=== PATIENT | female | born 1990 | race Caucasian/White ===

== ENCOUNTER 2019-02-12 10:57 | Inpatient (IN) | payer OTHER ==
[2019-02-12 12:13] VITALS: BMI 22.8
--- NOTE | 2019-02-12 12:45 | HP ---
COWS - Scale Resting Pulse: 0= [place] 80 or Below Sweatin= Chills/Flushing Restless Observation: 0= Sits Still Pupil Size: 0= Normal to Room Light Bone or Joint Aches: 1= Mild Discomfort Runny Nose/ Eye Tearin= None GI Upset > 30mins: 2= Nausea/Diarrhea Tremor Observation: 0= None Yawning Observation: 0= None Anxiety or Irritability: 1=Feels Anxious/Irritable Goose Flesh Skin: 0=Smooth Skin COWS Score: 5 CIWA Score - Admission Criteria OASAS Guidelines: Admission for Medically Managed Detox: Requires at least one of the followin. CIWA greater than 12 2. Seizures within the past 24 hours 3. Delirium tremens within the past 24 hours 4. Hallucinations within the past 24 hours 5. Acute intervention needed for co occurring medical disorder 6. Acute intervention needed for co occurring psychiatric disorder 7. Severe withdrawal that cannot be handled at a lower level of care (continued vomiting, continued diarrhea, abnormal vital signs) requiring intravenous medication and/or fluids 8. Admitting History and Physical - Primary Care Physician PCP: none - Admission Chief Complaint: heroin and benzo detox History of Present Illness: Pt states she was clean for 3yrs, then 3 mo ago her dad got sick and she relapsed. She states she is using heroin and benzos daily. She uses 25-30 bags of heroin/ day which she is snorting. In the past she has shot up the heroin but not in the last 3mo. She is also taking benzos every day "at least 5 pills/ day" but amounts vary depending on what she can get. 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 Her last use of heroin was 1 bag this morning. She was also recently hospitalized and discharged from [facility] last night. There she was given methadone 10mg, and ativan to prevent withdrawals. The patient has 1 child who is 8 years old but she does not have custody. The child lives with her mother, who has full custody, [place] in [place], [place]. Pt reports she does not have menstrual periods as she has an IUD - Past Medical History Pulmonary: Yes: Asthma ...LMP: 12/03/13 Psych: Yes: Anxiety, Depression Endocrine: Yes: Hypothyroidism - Smoking History Smoking history: Current every day smoker Aproximately how many cigarettes per day: 10 - Alcohol/Substance Use Hx Alcohol Use: No Admission ROS [facility] Allergies/Adverse Reactions: Allergies Allergy/AdvReac Type Severity Reaction Status Date / Time Penicillins Allergy Verified 02/12/19 12:02 - Ebola screening Have you traveled outside of the country in the last 21 days: No (N) Have you had contact with anyone from an Ebola affected area: No Do you have a fever: No - Review of Systems Constitutional: Chills, Diaphoresis, Changes in sleep EENT: reports: Nose Congestion, Sinus Pressure. denies: Eye Pain, Ear Pain Respiratory: reports: Cough, Shortness of Breath (recently diagnosed with asthma , takes albuterol) Cardiac: denies: Chest Pain, Lightheadedness, Palpitations, Syncope GI: reports: Constipated, Nausea. denies: Diarrhea, Vomiting Musculoskeletal: reports: Back Pain (low back pain), Joint Pain, Muscle Weakness , Joint Stiffness Integumentary: reports: No Symptoms Reported Neuro: reports: No Symptoms reported Endocrine: reports: Intolerance to Cold Hematology: reports: No Symptoms Reported Psychiatric: reports: Anxious, Depressed Other Systems: Reviewed and Negative Patient History - Patient Medical History Hx Anemia: No Hx Asthma: Yes (ALBUTEROL SINCE 03/2013) Hx Chronic Obstructive Pulmonary Disease (COPD): No Hx Cancer: No Hx Cardiac Disorders: No Hx Congestive Heart Failure: No Hx Hypertension: No Hx Hypercholesterolemia: No Hx Pacemaker: No HX Cerebrovascular Accident: No Hx Seizures: No Hx Dementia: No Hx Diabetes: No Hx Gastrointestinal Disorders: Yes (DYSPEPSIA) Hx Liver Disease: No Hx Genitourinary Disorders: No Hx Sexually Transmitted Disorders: No Hx Renal Disease (ESRD): No Hx Thyroid Disease: Yes (HYPOTHYROIDISM,NON-COMPLIANT WITH MEDS) Hx Human Immunodeficiency Virus (HIV): No (NEGATIVE ON 12/16/13) Hx Hepatitis C: No Hx Depression: Yes (WAS ON CYMBALTA AND OTHERS) Hx Suicide Attempt: No Hx Bipolar Disorder: No Hx Schizophrenia: No - Patient Surgical History Past Surgical History: No - PPD History Date: 12/19/13 - Reproductive History Last Menstrual Period: 12/03/13 - Smoking Cessation Smoking history: Current every day smoker Aproximately how many cigarettes per day: 10 Hx Chewing Tobacco Use: No - Substances abused Heroin Substance route: Inhalation Frequency: Daily Amount used: 30 bags Age of first use: 18 Date of last use: 02/11/19 Alprazolam (Xanax) Other (specify): alternate Substance route: Oral Frequency: Daily Amount used: 4 - 5 pills Age of first use: 18 Date of last use: 02/11/19 Benzodiazepine (Klonopin) Substance route: Oral Frequency: Daily Amount used: 4-5 pills Age of first use: 18 Date of last use: 02/11/19 Other Other (specify): Ativan Substance route: Oral Frequency: Daily Amount used: 4-5 pills Age of first use: 18 Date of last use: 02/12/19 Admission Physical Exam S - Vital Signs Vital Signs: Vital Signs - 24 hr 02/12/19 12:06 Temperature 96.8 F L Pulse Rate 64 Respiratory 20 Rate Blood Pressure 116/72 - Physical General Appearance: Yes: Within Normal Limits, Nourished, Appropriately Dressed HEENTM: Yes: Within Normal Limits, EOMI, Hearing grossly Normal, Normal ENT Inspection, Pharynx Normal Respiratory: Yes: Chest Non-Tender, No Respiratory Distress, No Accessory Muscle Use, Wheezing, Other (diffuse wheezing throughout) Neck: Yes: Within Normal Limits, Supple, Trachea in good position Cardiology: Yes: Within Normal Limits, Regular Rhythm, Regular Rate, S1, S2. No : Murmur Abdominal: Yes: Within Normal Limits, Normal Bowel Sounds, Non Tender, Flat, Soft Back: Yes: Within Normal Limits, Normal Inspection. No: CVA Tenderness Musculoskeletal: Yes: Within Normal Limits, full range of Motion, Gait Steady Extremities: Yes: Within Normal Limits, Normal Capillary Refill, Normal Inspection, Normal Range of Motion, Non-Tender Neurological: Yes: Within Normal Limits, exploitation analyst II-XII NML intact, Fully Oriented, Alert, Motor Strength 5/5, Normal Mood/Affect Integumentary: Yes: Within Normal Limits, Normal Color, Dry, Warm Lymphatic: Yes: Within Normal Limits Breathalyzer - Breathalyzer Breathalyzer: 0 Urine Drug Screen - Test Device Lot number: [id number] Expiration date: 09/24/20 - Control Is test valid?: Yes - Results Drug screen NEGATIVE: No Urine drug screen results: MOP-Opiates, MTD-Methadone, BZO-Benzodiazepines
--- NOTE | 2019-02-12 13:09 | PN ---
"Teaching Attending Note Name of Resident: Agata Maddox ATTENDING PHYSICIAN STATEMENT I saw and evaluated the patient. I reviewed the resident's note and discussed the case with the resident. I agree with the resident's findings and plan as documented. SUBJECTIVE:pt here requesting detox from opiate use, reports 25-30 bags/day via inhalation , denies IV use since 6 mo ago , relapsed after finding out her father has pulmonary dz , prior sobriety x 3 years , latest use this morning 1 bag , yesterday 1 bag, s/p hospitalization @ [facility] for SOB , dx w/ asthma , states was given 10 mg Methadone daily latest dose yesterday @ noon . benzo - 5 /day , reports w/d seizure several years ago , latest use yesterday , states was given Ativan @ [facility] while hospitalized . has 6 yr old dtr , custody w/ [facility] LMP - spotting, has IUD OBJECTIVE: wnwd Resp : wheezing all lung coker , no distress Vital Signs - 24 hr 02/12/19 12:06 Temperature 96.8 F L Pulse Rate 64 Respiratory 20 Rate Blood Pressure 116/72 This report was requested by: Jerilyn Sigala | Reference #: [id number] Others' Prescriptions Patient Name: Nadine Coffey Date: 1990 Address: [address] [place] [address] Sex: Female Rx Written Rx Dispensed Drug Quantity Days Supply Prescriber Name 10/22/2018 10/24/2018 dextroamp-amphetamin 30 mg tab 60 30 SantiaMando shabazz MD 09/25/2018 09/26/2018 dextroamp-amphetamin 30 mg tab 60 30 SantiaMando shabazz MD 08/26/2018 08/27/2018 dextroamp-amphetamin 30 mg tab 60 30 SantiaMando shabazz MD 07/30/2018 07/30/2018 dextroamp-amphetamin 30 mg tab 60 30 FaniiaMando shabazz MD 07/02/2018 07/03/2018 dextroamp-amphetamin 30 mg tab 60 30 SantiaMando shabazz MD 06/04/2018 06/06/2018 dextroamp-amphetamin 30 mg tab 60 30 SantiaMando shabazz MD 05/06/2018 05/09/2018 dextroamp-amphetamin 30 mg tab 60 30 Mando Rajan MD 04/11/2018 04/14/2018 dextroamp-amphetamin 30 mg tab 60 30 Mando Rajan MD 03/18/2018 03/18/2018 dextroamp-amphetamin 30 mg tab 60 30 Mando Rajan MD 02/13/2018 02/19/2018 dextroamp-amphetamin 30 mg tab 60 30 Mando Rajan MD ASSESSMENT AND PLAN: OUD - Methadone detox . Sedative dependence - Librium detox"
[2019-02-12] MEDS ORDERED: cloNIDine HCL 0.1 MG TABLET PO PRN (13:21)
[2019-02-12] MEDS ORDERED: METHADONE HCL 10 MG TABLET (FOR DETOX USE ONLY) PO ONE ×2 (13:21→17:00)
[2019-02-12] MEDS ORDERED: ALBUTEROL SO4 2.5/IPRATROPIUM 0.5 INH SOL 3 ML VIAL.NEB. NEB PRN (13:24)
[2019-02-12] MEDS ORDERED: ACETAMINOPHEN 325 MG TABLET (FP) PO PRN ×2 (14:49)
[2019-02-12] MEDS ORDERED: BISMUTH SUBSALICYLATE 262 MG/15 ML BTL PO PRN (14:49)
[2019-02-12] MEDS ORDERED: MAG HYDROX/AL HYDROX/SIMETH 30 ML UNIT-DOSE CUP PO PRN (14:49)
[2019-02-12] MEDS ORDERED: MENTHOL/PHENOL 1 EACH UD MM PRN (14:49)
[2019-02-12] MEDS ORDERED: hydrOXYzine PAMOATE 25 MG CAPSULE (FP) PO PRN (14:49)
[2019-02-12] MEDS ORDERED: MAGNESIUM HYDROX 2400MG/30ML ORAL SUSPENSION 30 ML CUP PO PRN (14:49)
[2019-02-12] MEDS ORDERED: MAGNESIUM CITRATE 300 ML BOTTLE PO PRN (14:49)
[2019-02-12] MEDS ORDERED: METHOCARBAMOL 500 MG TABLET PO PRN (14:49)
[2019-02-12] MEDS ORDERED: IBUPROFEN 400 MG TABLET (FP) PO PRN (14:49)
[2019-02-12 16:46] LABS: HEMATOCRIT 48.1 % (32.4-45.2); HEMOGLOBIN 15.8 GM/dL (10.7-15.3); MCH 31.2 pg (25.7-33.7); MCHC 32.9 g/dl (32.0-36.0); MEAN PLT VOLUME 10.9 fl (7.5-11.1); PLATELET COUNT 315 K/MM3 (134-434); RBC 5.07 M/mm3 (3.60-5.2); RDW 13.6 % (11.6-15.6); WHITE BLOOD COUNT 11.2 K/mm3 (4.0-10.0)
[2019-02-12 16:56] LABS: ALBUMIN 3.7 g/dl (3.4-5.0); BILIRUBIN,TOTAL 0.2 mg/dL (0.2-1); BLOOD UREA NITROGEN 18.9 mg/dL (7-18); CREATININE 0.9 mg/dL (0.55-1.3); POTASSIUM 3.5 mmol/L (3.5-5.1); TOT PROT 7.3 g/dl (6.4-8.2)
[2019-02-12] MEDS: ALBUTEROL SO4 8 GM HFA INHALER IH PRN (17:06)
[2019-02-12] MEDS: chlordiazePOXIDE HCL 25 MG CAPSULE PO SCH (21:09)
[2019-02-12] MEDS: THIAMINE HCL 100 MG TABLET (FP) PO SCH (21:09)
[2019-02-13] MEDS: chlordiazePOXIDE HCL 25 MG CAPSULE PO SCH ×3 (05:57→21:45)
[2019-02-13] MEDS: ALBUTEROL SO4 8 GM HFA INHALER IH PRN (05:57)
[2019-02-13] MEDS ORDERED: METHADONE HCL 5 MG TABLET (FOR DETOX USE ONLY) PO ONE (10:00)
[2019-02-13] MEDS: PRENATAL VITAMINS W/ FOLIC ACID TABLET (FP) PO SCH (10:44)
--- NOTE | 2019-02-13 13:29 | PN ---
[facility] CIWA - CIWA Score Nausea/Vomitin-No Nausea/No Vomiting Muscle Tremors: 2 Anxiety: 1-Mildly Anxious Agitation: 2 Paroxysmal Sweats: 2 Orientation: 0-Oriented Tacttile Disturbances: 0-None Auditory Disturbances: 0-None Visual Disturbances: 0-None Headache: 0-None Present CIWA-Ar Total Score: 7 [facility] COWS - Scale Resting Pulse: 0= [place] 80 or Below Sweatin= Chills/Flushing Restless Observation: 0= Sits Still Pupil Size: 0= Normal to Room Light Bone or Joint Aches: 1= Mild Discomfort Runny Nose/ Eye Tearin= None GI Upset > 30mins: 0= None Tremor Observation of Outstretched Hands: 1= Tremor [place], Not Seen Yawning Observation: 2= >3x During Session Anxiety or Irritability: 1=Feels Anxious/Irritable Goose Flesh Skin: 0=Smooth Skin COWS Score: 6 S Progress Note (SOAP) Subjective: interrupted sleep melatonin not helping sweats Objective: 02/13/19 13:27 Vital Signs Temperature 98.1 F 02/13/19 09:53 Pulse Rate 64 02/13/19 09:53 Respiratory Rate 16 02/13/19 09:53 Blood Pressure 102/61 02/13/19 09:53 O2 Sat by Pulse Oximetry (%) Laboratory Tests 02/12/19 02/12/19 02/12/19 14:35 14:35 14:35 WBC 11.2 H RBC 5.07 Hgb 15.8 H Hct 48.1 H D MCV 95.0 MCH 31.2 MCHC 32.9 RDW 13.6 Plt Count 315 D MPV 10.9 Sodium 140 Potassium 3.5 Chloride 104 Carbon Dioxide 28 Anion Gap 9 BUN 18.9 H Creatinine 0.9 Est GFR (CKD-EPI)AfAm 101.56 Est GFR (CKD-EPI)NonAf 87.63 Random Glucose 61 L Calcium 9.0 Total Bilirubin 0.2 AST 7 L ALT 18 Alkaline Phosphatase 54 Total Protein 7.3 Albumin 3.7 RPR Titer Nonreactive labs noted aaox3 ambulating no acute distress wbc elevated will repeat labs Assessment: 02/13/19 13:28 withdrawals Plan: continue detox increase fluids repeat labs seroquel 50mg qhs only while in detox
[2019-02-13] MEDS: chlordiazePOXIDE HCL 10 MG CAPSULE PO PRN (17:10)
[2019-02-13] MEDS: THIAMINE HCL 100 MG TABLET (FP) PO SCH (21:45)
[2019-02-13] MEDS: QUEtiapine FUMARATE 50 MG TABLET PO SCH (21:47)
[2019-02-14] MEDS: chlordiazePOXIDE 5 MG CAPSULE PO SCH ×3 (06:19→21:59)
[2019-02-14 09:30] LABS: BASO % 0.6 % (0-2.0); EOS % 10.2 % (0-4.5); HEMATOCRIT 46.6 % (32.4-45.2); HEMOGLOBIN 15.5 GM/dL (10.7-15.3); LYMPH % 37.4 % (8-40); MCH 30.9 pg (25.7-33.7); MCHC 33.2 g/dl (32.0-36.0); MEAN CELL VOLUME 93.3 fl (80-96); MEAN PLT VOLUME 10.3 fl (7.5-11.1); MONO % 7.8 % (3.8-10.2); PLATELET COUNT 258 K/MM3 (134-434); RDW 13.5 % (11.6-15.6); WHITE BLOOD COUNT 9.1 K/mm3 (4.0-10.0)
[2019-02-14] MEDS ORDERED: METHADONE HCL 10 MG TABLET (FOR DETOX USE ONLY) PO ONE (10:00)
[2019-02-14] MEDS: PRENATAL VITAMINS W/ FOLIC ACID TABLET (FP) PO SCH (10:46)
[2019-02-14] MEDS: chlordiazePOXIDE HCL 10 MG CAPSULE PO PRN ×2 (10:49→19:54)
--- NOTE | 2019-02-14 14:44 | PN ---
[facility] CIWA - CIWA Score Nausea/Vomitin-Mild Nausea/No Vomiting Muscle Tremors: 2 Anxiety: 4-Mod. Anxious/Guarded Agitation: 4-Moderately Restless Paroxysmal Sweats: 1-Minimal Palms Moist Orientation: 0-Oriented Tacttile Disturbances: 0-None Auditory Disturbances: 0-None Visual Disturbances: 0-None Headache: 2-Mild CIWA-Ar Total Score: 14 S COWS - Scale Resting Pulse: 1= [place] 81-100 Sweatin= Chills/Flushing Restless Observation: 1= Difficult to Sit Still Pupil Size: 1= Pupils >than Normal Bone or Joint Aches: 1= Mild Discomfort Runny Nose/ Eye Tearin= Nasal Congestion GI Upset > 30mins: 1= Stomach Cramp Tremor Observation of Outstretched Hands: 1= Tremor [place], Not Seen Yawning Observation: 1= 1-2x During Session Anxiety or Irritability: 2=Irritable/Anxious Goose Flesh Skin: 0=Smooth Skin COWS Score: 11 [facility] Progress Note (SOAP) Subjective: pt states feeling fine with detox protocols O: Vital Signs - 24 hr 02/13/19 02/13/19 02/14/19 18:24 21:07 00:30 Temperature 98.5 F 97.7 F Pulse Rate 78 84 Respiratory 18 17 18 Rate Blood Pressure 122/68 120/66 02/14/19 02/14/19 02/14/19 03:30 08:11 10:02 Temperature 97.7 F 97.9 F Pulse Rate 65 65 Respiratory 16 16 16 Rate Blood Pressure 108/57 L 108/57 L 02/14/19 14:00 Temperature 97.3 F L Pulse Rate 72 Respiratory 16 Rate Blood Pressure 110/72 Laboratory Tests 02/12/19 02/12/19 02/12/19 14:35 14:35 14:35 WBC 11.2 H RBC 5.07 Hgb 15.8 H Hct 48.1 H D MCV 95.0 MCH 31.2 MCHC 32.9 RDW 13.6 Plt Count 315 D MPV 10.9 Absolute Neuts (auto) Neutrophils % Lymphocytes % Monocytes % Eosinophils % Basophils % Nucleated RBC % Sodium 140 Potassium 3.5 Chloride 104 Carbon Dioxide 28 Anion Gap 9 BUN 18.9 H Creatinine 0.9 Est GFR (CKD-EPI)AfAm 101.56 Est GFR (CKD-EPI)NonAf 87.63 Random Glucose 61 L Calcium 9.0 Total Bilirubin 0.2 AST 7 L ALT 18 Alkaline Phosphatase 54 Total Protein 7.3 Albumin 3.7 RPR Titer Nonreactive 02/14/19 07:40 WBC 9.1 RBC 5.00 Hgb 15.5 H Hct 46.6 H MCV 93.3 MCH 30.9 MCHC 33.2 RDW 13.5 Plt Count 258 MPV 10.3 Absolute Neuts (auto) 4.0 Neutrophils % 44.0 Lymphocytes % 37.4 Monocytes % 7.8 Eosinophils % 10.2 H Basophils % 0.6 Nucleated RBC % 0 Sodium Potassium Chloride Carbon Dioxide Anion Gap BUN Creatinine Est GFR (CKD-EPI)AfAm Est GFR (CKD-EPI)NonAf Random Glucose Calcium Total Bilirubin AST ALT Alkaline Phosphatase Total Protein Albumin RPR Titer a/p: OUD and Benzo use disorder: on methadone and librium detox protocols
[2019-02-14] MEDS: QUEtiapine FUMARATE 50 MG TABLET PO SCH (22:09)
[2019-02-14] MEDS: THIAMINE HCL 100 MG TABLET (FP) PO SCH (22:09)
[2019-02-14] MEDS: MELATONIN 5 MG TABLETS PO PRN (22:09)
[2019-02-15] MEDS ORDERED: chlordiazePOXIDE HCL 10 MG CAPSULE PO PRN
[2019-02-15] MEDS: chlordiazePOXIDE HCL 10 MG CAPSULE PO SCH ×3 (05:43→22:23)
[2019-02-15] MEDS ORDERED: METHADONE HCL 5 MG TABLET (FOR DETOX USE ONLY) PO ONE (06:00)
[2019-02-15] MEDS: PRENATAL VITAMINS W/ FOLIC ACID TABLET (FP) PO SCH (10:47)
--- NOTE | 2019-02-15 13:48 | PN ---
[facility] CIWA - CIWA Score Nausea/Vomitin-No Nausea/No Vomiting Muscle Tremors: None Anxiety: 2 Agitation: 0-Normal Activity Paroxysmal Sweats: 2 Orientation: 0-Oriented Tacttile Disturbances: 0-None Auditory Disturbances: 0-None Visual Disturbances: 0-None Headache: 0-None Present CIWA-Ar Total Score: 4 S COWS - Scale Resting Pulse: 1= [place] 81-100 Sweatin= Chills/Flushing Restless Observation: 0= Sits Still Pupil Size: 0= Normal to Room Light Bone or Joint Aches: 0= None Runny Nose/ Eye Tearin= None GI Upset > 30mins: 0= None Tremor Observation of Outstretched Hands: 0= None Yawning Observation: 0= None Anxiety or Irritability: 2=Irritable/Anxious Goose Flesh Skin: 0=Smooth Skin COWS Score: 4 [facility] Progress Note (SOAP) Subjective: c/o mild withdrawal symptoms. Objective: 02/15/19 13:47 Vital Signs 02/15/19 02/15/19 06:40 10:16 Temperature 97.5 F L 97.5 F L Pulse Rate 67 90 Respiratory 18 16 Rate Blood Pressure 115/60 124/76 Laboratory Last Values WBC 9.1 K/mm3 (4.0-10.0) 02/14/19 07:40 RBC 5.00 M/mm3 (3.60-5.2) 02/14/19 07:40 Hgb 15.5 GM/dL (10.7-15.3) H 02/14/19 07:40 Hct 46.6 % (32.4-45.2) H 02/14/19 07:40 MCV 93.3 fl (80-96) 02/14/19 07:40 MCH 30.9 pg (25.7-33.7) 02/14/19 07:40 MCHC 33.2 g/dl (32.0-36.0) 02/14/19 07:40 RDW 13.5 % (11.6-15.6) 02/14/19 07:40 Plt Count 258 K/MM3 (134-434) 02/14/19 07:40 MPV 10.3 fl (7.5-11.1) 02/14/19 07:40 Absolute Neuts (auto) 4.0 K/mm3 (1.5-8.0) 02/14/19 07:40 Neutrophils % 44.0 % (42.8-82.8) 02/14/19 07:40 Lymphocytes % 37.4 % (8-40) 02/14/19 07:40 Monocytes % 7.8 % (3.8-10.2) 02/14/19 07:40 Eosinophils % 10.2 % (0-4.5) H 02/14/19 07:40 Basophils % 0.6 % (0-2.0) 02/14/19 07:40 Nucleated RBC % 0 % (0-0) 02/14/19 07:40 Sodium 140 mmol/L (136-145) 02/12/19 14:35 Potassium 3.5 mmol/L (3.5-5.1) 02/12/19 14:35 Chloride 104 mmol/L (98-107) 02/12/19 14:35 Carbon Dioxide 28 mmol/L (21-32) 02/12/19 14:35 Anion Gap 9 MMOL/L (8-16) 02/12/19 14:35 BUN 18.9 mg/dL (7-18) H 02/12/19 14:35 Creatinine 0.9 mg/dL (0.55-1.3) 02/12/19 14:35 Est GFR (CKD-EPI)AfAm 101.56 02/12/19 14:35 Est GFR (CKD-EPI)NonAf 87.63 02/12/19 14:35 Random Glucose 61 mg/dL (74-106) L 02/12/19 14:35 Calcium 9.0 mg/dL (8.5-10.1) 02/12/19 14:35 Total Bilirubin 0.2 mg/dL (0.2-1) 02/12/19 14:35 AST 7 U/L (15-37) L 02/12/19 14:35 ALT 18 U/L (13-61) 02/12/19 14:35 Alkaline Phosphatase 54 U/L (45-117) 02/12/19 14:35 Total Protein 7.3 g/dl (6.4-8.2) 02/12/19 14:35 Albumin 3.7 g/dl (3.4-5.0) 02/12/19 14:35 RPR Titer Nonreactive (NONREACTIVE) 02/12/19 14:35 Labs noted. Assessment: 02/15/19 13:47 AOX3, in no acute respiratory distress. Full ROM, ambulating in the unit. Mild Withdrawal symptoms. For d/c tomorrow. 02/15/19 13:48 Plan: continue detox. D/C in AM.
[2019-02-15] MEDS: THIAMINE HCL 100 MG TABLET (FP) PO SCH (22:23)
[2019-02-15] MEDS: QUEtiapine FUMARATE 50 MG TABLET PO SCH (22:23)
[2019-02-15] MEDS: MELATONIN 5 MG TABLETS PO PRN (22:23)
[2019-02-16] MEDS ORDERED: chlordiazePOXIDE HCL 10 MG CAPSULE PO ONE (05:00)
--- NOTE | 2019-02-16 09:19 | DS ---
[facility] Detox Discharge Summary Admission Date: 02/12/19 Discharge Date: 02/16/19 - History Present History: Opioid Dependence, Sedative Dependence - Physical Exam Results Vital Signs: Vital Signs Temperature 97.9 F 02/16/19 05:00 Pulse Rate 72 02/16/19 05:00 Respiratory Rate 16 02/16/19 05:00 Blood Pressure 103/62 02/16/19 05:00 O2 Sat by Pulse Oximetry (%) Pertinent Admission Physical Exam Findings: Vital Signs Temperature 97.9 F 02/16/19 05:00 Pulse Rate 72 02/16/19 05:00 Respiratory Rate 16 02/16/19 05:00 Blood Pressure 103/62 02/16/19 05:00 O2 Sat by Pulse Oximetry (%) Laboratory Tests 02/12/19 02/12/19 02/12/19 14:35 14:35 14:35 WBC 11.2 H RBC 5.07 Hgb 15.8 H Hct 48.1 H D MCV 95.0 MCH 31.2 MCHC 32.9 RDW 13.6 Plt Count 315 D MPV 10.9 Absolute Neuts (auto) Neutrophils % Lymphocytes % Monocytes % Eosinophils % Basophils % Nucleated RBC % Sodium 140 Potassium 3.5 Chloride 104 Carbon Dioxide 28 Anion Gap 9 BUN 18.9 H Creatinine 0.9 Est GFR (CKD-EPI)AfAm 101.56 Est GFR (CKD-EPI)NonAf 87.63 Random Glucose 61 L Calcium 9.0 Total Bilirubin 0.2 AST 7 L ALT 18 Alkaline Phosphatase 54 Total Protein 7.3 Albumin 3.7 RPR Titer Nonreactive 02/14/19 07:40 WBC 9.1 RBC 5.00 Hgb 15.5 H Hct 46.6 H MCV 93.3 MCH 30.9 MCHC 33.2 RDW 13.5 Plt Count 258 MPV 10.3 Absolute Neuts (auto) 4.0 Neutrophils % 44.0 Lymphocytes % 37.4 Monocytes % 7.8 Eosinophils % 10.2 H Basophils % 0.6 Nucleated RBC % 0 Sodium Potassium Chloride Carbon Dioxide Anion Gap BUN Creatinine Est GFR (CKD-EPI)AfAm Est GFR (CKD-EPI)NonAf Random Glucose Calcium Total Bilirubin AST ALT Alkaline Phosphatase Total Protein Albumin RPR Titer aaox3 ambulating no acute distress - Treatment Hospital Course: Detox Protocol Followed, Detoxed Safely, Responded well, Discharged Condition Good, Rehab Referral Accepted Patient has Accepted a Rehab Referral to: referred to [facility] [place] - Medication Discharge Medications: Ambulatory Orders Albuterol Sulfate Inhaler - [Ventolin Hfa Inhaler -] 1 - 2 inh PO QID PRN - Diagnosis (1) Benzodiazepine dependence Current Visit: Yes Status: Chronic (2) Bronchial asthma Current Visit: No Status: Acute (3) GERD (gastroesophageal reflux disease) Current Visit: Yes Status: Chronic Qualifiers: Esophagitis presence: without esophagitis Qualified Code(s): K21.9 - Gastro -esophageal reflux disease without esophagitis (4) Heroin dependence Current Visit: No Status: Acute (5) Substance-induced sleep disorder Current Visit: No Status: Acute - AMA Did Patient Leave Against Medical Advice: No
[2019-02-16 09:29] VITALS: BP 108/64; PULSE 82; TEMP 97.7
[2019-02-16] MEDS: PRENATAL VITAMINS W/ FOLIC ACID TABLET (FP) PO SCH (10:24)
== END 2019-02-16 12:21 | disposition home or self-care (01) | DRG 773 ==
LOC: YASAS 10:57 → Y6N 13:40
PROVIDERS: ADMIT Allergy & Immunology; ATTEND Allergy & Immunology
PROC: HZ2ZZZZ Detoxification Services for Substance Abuse Treatment (ICD-10-PCS; principal; 2019-02-12)
DX: F11.23 Opioid dependence with withdrawal (principal); F13.230 Sedative, hypnotic or anxiolytic dependence with withdrawal, uncomplicated; F17.210 Nicotine dependence, cigarettes, uncomplicated; F19.282 Other psychoactive substance dependence with psychoactive substance-induced sleep disorder; J45.909 Unspecified asthma, uncomplicated; K21.9 Gastro-esophageal reflux disease without esophagitis; E03.9 Hypothyroidism, unspecified; Z88.0 Allergy status to penicillin; Z91.14 Patient's other noncompliance with medication regimen
CPT/HCPCS: 36415; 80053; 85025; 85027; 86593